=== PATIENT | male | born 1965 | race Caucasian/White ===

== ENCOUNTER → 2017-05-14 | Outpatient (CLI) | payer OTHER ==
--- NOTE | 2017-05-14 13:55 | DIAGNOSTIC IMAGING REPORT ---
CHEST 2 VIEWS ROUTINE HISTORY: Short of breath. UNSPEC ASTHMA W/ACUTE EXACERBATION COMPARISON: None. FINDINGS: The lungs are clear. Cardiac silhouette is normal in size. No pleural effusions. No pneumothorax. IMPRESSION: No acute process. Electronically signed by: Toni Ponce M.D. 05/14/2017 1:54 PM Dictated Date/Time: 05/14/2017 1:51 PM
== END | disposition home or self-care (01) ==
LOC: C.RAD 13:26
PROVIDERS: ATTEND Family Medicine
DX: J45.901 Unspecified asthma with (acute) exacerbation (principal)

== ENCOUNTER → 2017-05-25 | Outpatient (CLI) | payer OTHER | END | disposition home or self-care (01) | LOC: C.RDSM 15:54 | PROVIDERS: ATTEND Family Medicine Sports Medicine | DX: M25.562 Pain in left knee (principal) ==

== ENCOUNTER → 2017-06-15 | Outpatient (CLI) | payer OTHER ==
--- NOTE | 2017-06-15 11:39 | DIAGNOSTIC IMAGING REPORT ---
ORBITS FOR MRI HISTORY: 52 years-old Male LT KNEE PAIN clearance for MRI. 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 Imaged paranasal sinuses appear clear. Mastoid air cells also appear clear. No acute fracture identified. Bony orbits appear intact. IMPRESSION: No opaque foreign body of the orbits identified. The above report was generated using voice recognition software. It may contain grammatical, syntax or spelling errors. Electronically signed by: Parrish Tierney M.D. 06/15/2017 11:37 AM Dictated Date/Time: 06/15/2017 11:36 AM
--- NOTE | 2017-06-15 12:57 | DIAGNOSTIC IMAGING REPORT ---
L LOWER EXT JOINT WITHOUT CLINICAL HISTORY: LT KNEE PAIN pain TECHNIQUE: Multi axial MRI acquisition COMPARISON STUDY: None FINDINGS: Near nondiagnostic study due to considerable patient motion. Findings of mild bone contusion medial femoral condyle. Signal characteristics of all additional osseous structures are unremarkable. Small joint effusion. No significant popliteal cyst. Moderate chondromalacia patella of the central patellar articulating surface. Sprain medial patellar retinaculum. Lateral retinaculum is intact. Medial and lateral collateral ligaments are intact. The lateral meniscus is unremarkable in configuration and signal character. The medial meniscus demonstrates a considerable increase in meniscal signal. There may be hairline extension of a mid meniscal tear to the meniscal apex. There is focal loss of articular surface of the central aspect medial femoral condyle. There is thinning of the articular services the medial tibial plateau. Lateral joint compartment articular services show only minimal deterioration. Anterior and posterior cruciate ligaments are intact. There are several synechiae of the suprapatellar bursa. IMPRESSION: 1. Generalized degenerative signal medial meniscus with a probable superimposed hairline tear of the mid medial meniscus extending to the meniscal apex 2. Focal loss of articular cartilage mid medial femoral condyle. 3. Mild chondromalacia patella. 4. Several synechiae of the suprapatellar bursa with a sprain medial patellar retinaculum. 5. Mild surrounding soft tissue edematous change. The above report was generated using voice recognition software. It may contain grammatical, syntax or spelling errors. Electronically signed by: Stu Tenorio M.D. 06/15/2017 12:55 PM Dictated Date/Time: 06/15/2017 12:50 PM
== END | disposition home or self-care (01) ==
LOC: C.MRI 11:08
PROVIDERS: ATTEND Family Medicine Sports Medicine
DX: M25.562 Pain in left knee (principal); Z13.9 Encounter for screening, unspecified; M67.862 Other specified disorders of synovium, left knee